=== PATIENT | male | born 1960 | race Caucasian/White ===

== ENCOUNTER 2020-08-09 15:48 | Inpatient (IN) ==
[2020-08-09] MEDS ORDERED: SODIUM CHLORIDE 0.9% 500 ML IV ONE (16:15)
[2020-08-09 16:35] LABS: Basophils # (auto) 0.03 K/uL (0-0.2); Basophils % (auto) 0.5 %; Eosinophils # (auto) 0.11 K/uL (0-0.5); Eosinophils % (auto) 1.8 %; Hematocrit (blood only) 45.3 % (42-52); Hemoglobin 15.3 g/dL (14.0-18.0); Immature Granulocytes # (auto) 0.02 K/uL (0.00-0.02); Immature Granulocytes % (auto) 0.3 %; Lymphocytes # (auto) 1.05 K/uL (1.2-3.4); Lymphocytes % (auto) 17.2 %; Mean Corpuscular Hgb Conc 33.8 g/dL (32-36); Mean Corpuscular Volume 85.8 fL (80-100); Mean Platelet Volume 9.5 fL (7.4-10.4); Monocytes # (auto) 0.58 K/uL (0.11-0.59); Monocytes % (auto) 9.5 %; Neutrophils # (auto) 4.32 K/uL (1.4-6.5); Neutrophils % (auto) 70.7 %; Platelet Count 159 K/uL (130-400); RDW Coefficient of Variation 12.8 % (11.5-14.5); RDW Standard Deviation 40.3 fL (36.4-46.3); Red Blood Count 5.28 M/uL (4.7-6.1); White Blood Count 6.11 K/uL (4.8-10.8)
--- NOTE | 2020-08-09 16:41 | XRay Report ---
SINGLE VIEW CHEST CLINICAL HISTORY: Atypical chest pain. FINDINGS: An AP, portable, upright chest radiograph is compared to study dated 02/24/2008. The heart a ppears mildly enlarged. The mediastinal contour is within normal limits. There is mild bibasilar atel ectasis. No airspace consolidation or large pleural effusion is identified. No pneumothorax is seen. 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 IMPRESSION: No acute cardiopulmonary abnormality. ACT 112: Negative or not required by law. Electronically signed by: Arnaldo Pichardo M.D. 08/09/2020 4:40 PM
[2020-08-09 16:52] LABS: Albumin Level 4.2 gm/dl (3.4-5.0); BUN Creatinine Ratio 15.2 (10-20); Bilirubin Direct 0.2 mg/dl (0-0.2); Creatinine Clr Calc Pharmacy 73.8 ml/min; Est GFR (African American) 81.7 ml/min; Est GFR (Non-African American) 70.5 ml/min; Potassium 3.9 mmol/L (3.5-5.1)
--- NOTE | 2020-08-09 16:55 | History & Physical Report ---
Date of Service August 09, 2020 Assessment & Plan (1) Abnormal stress echocardiogram: (2) Non-sustained ventricular tachycardia: This is a 60yo M with a PMH of prediabetes who presents from cardiology clinic following abnormal stress echocardiogram. Exertional chest/epigastric pain x 4 months. Currently chest pain free at rest Abnormal stress echo today with wall motion abnormalities of the inferior and septal myocardium Developed non-sustained vtach during exercise stress echo - EKG in ER this evening showing NSR Dr. Bay sent to ER for admission with planned cardiac catheterization in the morning No indication for IV heparin at this time, per discussion with Dr. Bay Initial troponin 0.129 in setting of resolved vtach and exertional ischemia - continue to trend troponin Continue aspirin, statin Adding Lopressor 12.5mg Keep NPO after midnight Repeat ECG in AM Cardiology consult DVT Ppx: SQ heparin x 1 this evening Code status: FULL PCP: Cory Dispo: Admitted to PCU. Patient seen in collaboration with Dr. Barrientos. Please see addendum. History of Present Illness Chief Complaint: abnormal stress echo Primary Care Provider: Rachell Ray MD This is a 60yo M with a PMH of prediabetes who presents from cardiology clinic following abnormal stress echocardiogram. Patient with history of epigastric and chest discomfort over the past 4 months and describes as exertional burning pain in epigastrium radiating up to chest with associated SOB and indigestion. Resolves at rest. Denies nausea, vomiting, abdominal pain. No fever, chills, lightheadedness, headache, congestion, sore throat, wheezing, dysuria or diarrhea. Endorses constipation that resolved with OTC medications at home. Chews tobacco daily. Has previously undergone GI work-up for reflux which was negative prior to referral to cardiology. Underwent exercise stress echocardiogram today and was only able to complete 4 minutes of protocol prior to developing nonsustained ventricular tachycardia. Echocardiogram revealed wall motion abnormalities of the inferior and septal myocardium. Dr. Bay sent to ER for admission with planned cardiac catheterization in the morning. Is not experiencing chest or epigastric pain while at rest in ER. Allergies Allergy/AdvReac Type Severity Reaction Status Date / Time No Known Allergies Allergy Mild Verified 08/09/20 17:10 Home Medications Medication Instructions Recorded Confirmed Type aspirin 81 mg PO DAILY 08/09/20 08/09/20 History calcium carbonate [Tums] 200 mg PO DIRECTED PRN 08/09/20 08/09/20 History famotidine 20 mg PO DIRECTED PRN 08/09/20 08/09/20 History pantoprazole 40 mg PO DAILYBB 08/09/20 08/09/20 History rosuvastatin [Crestor] 10 mg PO DAILY 08/09/20 08/09/20 History Past Med/Surg History Medical History Chest pain Tobacco use Surgical History History of colonoscopy 05/25/20 adenomatous polyp, repeat 5 yrs History of esophagogastroduodenoscopy (EGD) 05/25/20 normal bx Family History (Updated 08/09/20 @ 16:52 by Ivy Martinez PA-C) Other Heart disease Social History (Updated 08/09/20 @ 17:12 by Ivy Martinez PA-C) Smoking Status: Current every day smoker Tobacco Type: Smokeless Tobacco (Dip or Chew) Hx Alcohol Use: Yes Alcohol type: beer Alcohol Intake Frequency: 2-3 x/Week Alcohol Intake Frequency Comment: 4-5 beers 2-3x/week Hx Substance Use: No Feels Safe at Home: Yes Review of Systems Review of Systems: At least ten systems reviewed and negative except as noted in the HPI. Physical Exam Physical Exam: Please see Dr. Barrientos's addendum for physical exam. Results & Data Results & Data ([facility]) Vital Signs (Past 12 Hours) Vital Signs Temp Pulse Resp BP Pulse Ox 08/09/20 16:24 96 08/09/20 15:52 36.3 C L 85 20 184/112 H 97 Laboratory Results Short CBC 08/09/20 Range/Units 16:05 WBC 6.11 (4.8-10.8) K/uL Hgb 15.3 (14.0-18.0) g/dL Hct 45.3 (42-52) % Plt Count 159 (130-400) K/uL BMP 08/09/20 16:05 Sodium 138 Potassium 3.9 Chloride 105 Carbon Dioxide 26 BUN 17 Creatinine 1.12 Glucose 86 Calcium 10.0 Liver Function 08/09/20 Range/Units 16:05 Direct Bilirubin 0.2 (0-0.2) mg/dl AST 40 H (15-37) U/L ALT 59 (12-78) U/L Albumin 4.2 (3.4-5.0) gm/dl Diagnostic Findings Chest X-Ray 08/09/20 16:15 SINGLE VIEW CHEST CLINICAL HISTORY: Atypical chest pain. FINDINGS: An AP, portable, upright chest radiograph is compared to study dated 02/24/2008. The heart appears mildly enlarged. The mediastinal contour is within normal limits. There is mild bibasilar atelectasis. No airspace consolidation or large pleural effusion is identified. No pneumothorax is seen. 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 IMPRESSION: No acute cardiopulmonary abnormality. ACT 112: Negative or not required by law. Electronically signed by: Arnaldo Pichardo M.D. 08/09/2020 4:40 PM Supervising Physician Co-Signing Physician Notes 60-year-old man who presents from cardiac stress test today due to significant findings. History and physical exam performed by me as detailed by Ivy Martinez PA-C History is significant for history of epigastric pain/discomfort especially on exertion, associated with shortness of breath and this resolves with rest for past 4months with negative GI workup Also significant family history of father having a cardiac event at 55 Denies cigarette smoking, chews tobacco daily. Had developed symptoms during stress test today with NSVT and wall motion abnormalities General: Well nourished, well hydrated, no acute distress and not ill appearing Eyes: PERRL, conjunctivae normal, not pale, anicteric sclerae, EOM intact bilaterally ENMT: External ear and nose normal, oropharynx normal Neck: Normal visual inspection, no tracheal deviation, no swelling noted Respiratory: Normal respiratory effort, no respiratory distress, lungs clear to auscultation, no crackles and no wheezes Cardiovascular: Pulse is RRR. Heart Sounds: normal S1 and normal S2; no murmurs. no pedal edema Chest (Breasts): Chest: normal inspection of chest Gastrointestinal (Abdomen): Abdomen is not distended, soft, non-tender to palpation, no guarding, no palpable hepatosplenomegaly, normal bowel sounds Musculoskeletal: No cyanosis or clubbing, all extremities motor strength 5/5 Genitourinary: No CVA tenderness Skin: No rash noted on gross inspection, No ulcers noted Neurologic: Alert and oriented x 3, No focal weakness, sensation grossly intact Psychiatric: Euthymic affect, no depressed affect -Stable angina -Abnormal stress test Trend trop EKG analysis normal sinus rhythm without ST-T changes Keep n.p.o. past midnight for cath tomorrow Blood pressure was elevated on admission. During evaluation was 154/80 Continue beta-padmini Continue aspirin and statin. Cardiology consult Hemoglobin A1c from 04/29/2020 was 5.9. Recheck in AM Check Lipid panel Other plans as detailed by Ivy Martinez PA-C
--- NOTE | 2020-08-09 16:58 | Emergency Department Note ---
Impression & Plan Chest pain, Abnormal stress echocardiogram, Non-sustained ventricular tachycardia, Elevated troponin, Lab test positive for detection of COVID-19 virus ED Provider Note NAME: STAR CORONA AGE: 60 SEX: M ARRIVES VIA: Walk-In INFORMANT: Patient, ED PROVIDER(S): Owen Chanel MD CHIEF COMPLAINT: Chest pain, Abnormal stress test. PLAN: Disposition: Admit MEDICAL DECISION MAKING: The patient is a pleasant 60-year-old gentleman with a past medical history of tobacco use who presents to the emergency department referred from cardiology of [facility] after having outpatient stress echo that was abnormal with wall motion abnormality and NSVT where he developed chest pain in setting of his report of having frequent exertional chest pain and resting chest pain that he had attributed to reflux for the past several months. He reports a family history of early heart disease. Otherwise denies any fevers, chills, cough, congestion, GI or symptoms. At this time patient denies any chest pain and reports it resolved once his exertion was discontinued. Per call-in from cardiology plan will be for admission and heart catheterization in the morning. On arrival patient is no acute distress, afebrile with blood pressure 180s/100s and vital signs otherwise stable. EKG without overt acute ischemia. CXR negative for acute cardiopulmonary pro cess. WBC, H/H, platelets wnl. Chemistry without acidosis. Electrolytes unremarkable. LFTs without significant abnormality. Initial Troponin 0.129. Aspirin administered. Case was discussed with Dino Aleman PAC (who was already aware of the patient referral to ED and plan) with Dr. Floyd Sun hospitalist who will evaluate the patient for admission. Patient's Covid-19 PCR was subsequently positive. Admitting team updated. Triage Nursing notes reviewed and agree them. Prior medical records reviewed Vital Signs: reviewed and remarkable for hypertension. Differential diagnosis: Cardiac ischemia, aortic dissection, pulmonary embolism, pneumothorax, pneumonia, pericarditis, myocarditis, esophageal rupture, GERD, cholecystitis, pancreatitis, musculoskeletal, as well as other pathologies. ER treatment provided: See below. Diagnostics interpreted by me: ECG: Normal sinus rhythm, 65 bpm, no ectopy, no overt ST elevation or depression, QTC 418, QRS 90. Cardiac Monitoring: An order for continuous cardiac monitoring was placed and demonstrated normal sinus rhythm, 65 bpm, no ectopy. Laboratory studies: See below Imaging studies: See below Consultation(s): Case was discussed with Dino Aleman PAC, with Dr. Floyd Sun hospitalist who will evaluate the patient for admission. HPI: The patient is a pleasant 60-year-old gentleman with a past medical history of tobacco use who presents to the emergency department referred from cardiology office after having outpatient stress echo that was abnormal with wall motion abnormality and NSVT where he developed chest pain in setting of his report of having frequent exertional chest pain and resting chest pain that he had attributed to reflux for the past several months. He reports a family history of early heart disease. Otherwise denies any fevers, chills, cough, congestion, GI or symptoms. At this time patient denies any chest pain and reports it resolved once his exertion was discontinued. Per call-in from cardiology plan will be for admission and heart catheterization in the morning. ROS: See above HPI for pertinent positives & negatives. A total of 10 systems reviewed and were otherwise negative. PAST MEDICAL HISTORY:See Below PAST SURGICAL HISTORY:See Below FAMILY HISTORY:See Below SOCIAL HISTORY:See Below HOME MEDICATIONS:See Below ALLERGIES:See Below VITALS:See Below PHYSICAL EXAMINATION: GENERAL: Awake, alert, well-appearing, in no distress HENT: Normocephalic, atraumatic. Oropharynx with dry mucous membranes and otherwise unremarkable. EYES: Normal conjunctiva. Sclera non-icteric. NECK: Supple. No nuchal rigidity. FROM. No JVD. RESPIRATORY: Clear to auscultation. CARDIAC: Regular rate, normal rhythm. Extremities warm and well perfused. Pulses equal. ABDOMEN: Soft, non-distended. No tenderness to palpation. No rebound or guarding. No masses. RECTAL: Deferred. MUSCULOSKELETAL: Chest examination reveals no tenderness. The back is symmetrical on inspection without obvious abnormality. There is no CVA tenderness to palpation. No joint edema. LOWER EXTREMITIES: Calves are equal size bilaterally and non-tender. No edema. No discoloration. NEURO: Normal sensorium. No sensory or motor deficits noted. SKIN: No rash or jaundice noted. ED COURSE: Critical Care: I have personally spent greater than 35 minutes of critical care time in the direct management of this patient. This includes bedside care, interpretation of diagnostic studies, and testing, discussion with consultants, patient, and family members, and other required patient management activities. This 35 minutes is in excess of all separately billable procedures. Owen Chanel MD Past Med/Surg History Medical History Chest pain Tobacco use Surgical History History of colonoscopy 05/25/20 adenomatous polyp, repeat 5 yrs History of esophagogastroduodenoscopy (EGD) 05/25/20 normal bx Family History Other Heart disease Social History Smoking Status: Never smoker Tobacco Type: Smokeless Tobacco (Dip or Chew) Second Hand Exposure: Yes; Do You Dip or Chew Tobacco: Yes; Tobacco Cessation Education Requested by Patient: No Hx Alcohol Use: Yes Alcohol type: beer Alcohol Intake Frequency: 2-3 x/Week Alcohol Intake Frequency Comment: 4-5 beers 2-3x/week Hx Substance Use: No Preferred Language: [place] Communication Ability: Effective Biological Scientist Required: No Beliefs That Will Affect Care: None Current Living Situation: Family Other Information That Helps Us Care for You: No Feels Safe at Home: Yes Safety Concerns: Feels Safe At This Time Assistive Devices: Contacts Allergies Allergies Allergy/AdvReac Type Severity Reaction Status Date / Time No Known Allergies Allergy Mild Verified 08/09/20 17:10 Home Meds Home Medications Medication Instructions Recorded Confirmed aspirin 81 mg PO DAILY 08/09/20 08/09/20 calcium carbonate [Tums] 200 mg PO DIRECTED PRN 08/09/20 08/09/20 famotidine 20 mg PO DIRECTED PRN 08/09/20 08/09/20 pantoprazole 40 mg PO DAILYBB 08/09/20 08/09/20 rosuvastatin [Crestor] 10 mg PO DAILY 08/09/20 08/09/20 Results & Data (ED) Vital Signs Vital Signs - 24 hr 08/09/20 15:52 08/09/20 16:07 08/09/20 16:24 Temperature 36.3 C L Temperature Source Temporal Artery Scan Pulse Rate 85 59 L Pulse Rate from SpO2 Sensor 60 Respiratory Rate 20 15 Respiratory Effort / Characteristics Non-Labored Respiratory Pattern Regular Blood Pressure 184/112 H 155/95 H Blood Pressure Mean 136 115 Pulse Oximetry 97 94 96 Oxygen Delivery Method Room Air Room Air Sepsis Recent Fever Within 48 Hours No Sepsis New/Unexplained Change in Mental Status N/A Sepsis Action Taken by Nursing No Action Required 08/09/20 16:30 08/09/20 17:00 Temperature Temperature Source Pulse Rate 59 L 60 Pulse Rate from SpO2 Sensor 60 58 L Respiratory Rate 22 25 H Respiratory Effort / Characteristics Respiratory Pattern Blood Pressure 157/88 H 147/87 H Blood Pressure Mean 111 107 Pulse Oximetry 95 95 Oxygen Delivery Method Sepsis Recent Fever Within 48 Hours Sepsis New/Unexplained Change in Mental Status Sepsis Action Taken by Nursing Laboratory Data Attestation: I reviewed the patient's lab results. Result diagrams: 08/09/20 16:05 08/09/20 16:05 Lab Results 08/09/20 08/09/20 08/09/20 Range/Units 16:05 16:05 16:35 WBC 6.11 (4.8-10.8) K/uL RBC 5.28 (4.7-6.1) M/uL Hgb 15.3 (14.0-18.0) g/dL Hct 45.3 (42-52) % MCV 85.8 (80-100) fL MCH 29.0 (25-34) pg MCHC 33.8 (32-36) g/dL RDW Std Deviation 40.3 (36.4-46.3) fL RDW Coeff of Marizol 12.8 (11.5-14.5) % Plt Count 159 (130-400) K/uL MPV 9.5 (7.4-10.4) fL Immature Gran % (Auto) 0.3 % Neut % (Auto) 70.7 % Lymph % (Auto) 17.2 % [place] % (Auto) 9.5 % Eos % (Auto) 1.8 % Baso % (Auto) 0.5 % Neut # (Auto) 4.32 (1.4-6.5) K/uL Lymph # (Auto) 1.05 L (1.2-3.4) K/uL [place] # (Auto) 0.58 (0.11-0.59) K/uL Eos # (Auto) 0.11 (0-0.5) K/uL Baso # (Auto) 0.03 (0-0.2) K/uL Immature Gran # (Auto) 0.02 (0.00-0.02) K/uL Sodium 138 (136-145) mmol/L Potassium 3.9 (3.5-5.1) mmol/L Chloride 105 (98-107) mmol/L Carbon Dioxide 26 (21-32) mmol/L Anion Gap 7.0 (3-11) BUN 17 (7-18) mg/dl Creatinine 1.12 (0.6-1.4) mg/dl Est Cr Clr Drug Dosing 73.8 ml/min Est GFR ( Amer) 81.7 ml/min Est GFR (Non-Af Amer) 70.5 ml/min BUN/Creatinine Ratio 15.2 (10-20) Glucose 86 (70-99) mg/dl Calcium 10.0 (8.5-10.1) mg/dl Phosphorus 3.8 (2.5-4.9) mg/dl Magnesium 2.0 (1.8-2.4) mg/dl Total Bilirubin 0.8 (0.2-1) mg/dl Direct Bilirubin 0.2 (0-0.2) mg/dl AST 40 H (15-37) U/L ALT 59 (12-78) U/L Alkaline Phosphatase 122 H (45-117) U/L Total Creatine Kinase 176 (39-308) U/L Troponin I 0.129 H* (0-0.045) ng/ml Total Protein 7.7 (6.4-8.2) gm/dl Albumin 4.2 (3.4-5.0) gm/dl Globulin 3.5 (2.5-4.0) gm/dl Albumin/Globulin Ratio 1.2 (0.9-2) Lipase 160 (73-393) U/L COVID-19 Eval Order Covid19 at [facility] SARS-CoV-2 (PCR) (Negative) 08/09/20 Range/Units 16:35 WBC (4.8-10.8) K/uL RBC (4.7-6.1) M/uL Hgb (14.0-18.0) g/dL Hct (42-52) % MCV (80-100) fL MCH (25-34) pg MCHC (32-36) g/dL RDW Std Deviation (36.4-46.3) fL RDW Coeff of Marizol (11.5-14.5) % Plt Count (130-400) K/uL MPV (7.4-10.4) fL Immature Gran % (Auto) % Neut % (Auto) % Lymph % (Auto) % [place] % (Auto) % Eos % (Auto) % Baso % (Auto) % Neut # (Auto) (1.4-6.5) K/uL Lymph # (Auto) (1.2-3.4) K/uL [place] # (Auto) (0.11-0.59) K/uL Eos # (Auto) (0-0.5) K/uL Baso # (Auto) (0-0.2) K/uL Immature Gran # (Auto) (0.00-0.02) K/uL Sodium (136-145) mmol/L Potassium (3.5-5.1) mmol/L Chloride (98-107) mmol/L Carbon Dioxide (21-32) mmol/L Anion Gap (3-11) BUN (7-18) mg/dl Creatinine (0.6-1.4) mg/dl Est Cr Clr Drug Dosing ml/min Est GFR ( Amer) ml/min Est GFR (Non-Af Amer) ml/min BUN/Creatinine Ratio (10-20) Glucose (70-99) mg/dl Calcium (8.5-10.1) mg/dl Phosphorus (2.5-4.9) mg/dl Magnesium (1.8-2.4) mg/dl Total Bilirubin (0.2-1) mg/dl Direct Bilirubin (0-0.2) mg/dl AST (15-37) U/L ALT (12-78) U/L Alkaline Phosphatase (45-117) U/L Total Creatine Kinase (39-308) U/L Troponin I (0-0.045) ng/ml Total Protein (6.4-8.2) gm/dl Albumin (3.4-5.0) gm/dl Globulin (2.5-4.0) gm/dl Albumin/Globulin Ratio (0.9-2) Lipase (73-393) U/L COVID-19 Eval Order SARS-CoV-2 (PCR) POSITIVE A* (Negative) Administered Medications Metoprolol Tartrate (Metoprolol Tartrate 25 Mg Tab) 12.5 mg PO BID KANDI Stop: 09/08/20 20:59 Last Admin: 08/09/20 20:21 Dose: Not Given Documented by: [id number] Discontinued Medications Aspirin (Aspirin Chew 324 Mg) 324 mg PO NOW STA Stop: 08/09/20 17:28 Last Admin: 08/09/20 17:36 Dose: 324 mg Documented by: [id number] Heparin Sodium (Porcine) (Heparin Sod 5,000 Unit/0.5 Ml Vial) 5,000 units SQ ONE ONE Stop: 08/09/20 21:01 Last Admin: 08/09/20 20:20 Dose: 5,000 units Documented by: [id number] Sodium Chloride (Nss) 500 mls @ 999 mls/hr IV .Q31M ONE Stop: 08/09/20 16:45 Last Infusion: 08/09/20 17:59 Dose: 0 mls/hr Documented by: [id number] Admin: 08/09/20 16:36 Dose: 999 mls/hr Documented by: [id number] Isosorbide Mononitrate (Isosorbide [place] Extended Rel 30 Mg Tabcr) 30 mg PO NOW ONE Stop: 08/09/20 21:13 Last Admin: 08/09/20 22:49 Dose: Not Given Documented by: [id number] Imaging Data Radiologist's Impression: Chest X-Ray 08/09/20 16:15 SINGLE VIEW CHEST CLINICAL HISTORY: Atypical chest pain. FINDINGS: An AP, portable, upright chest radiograph is compared to study dated 02/24/2008. The heart appears mildly enlarged. The mediastinal contour is within normal limits. There is mild bibasilar atelectasis. No airspace consolidation or large pleural effusion is identified. No pneumothorax is seen. 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 IMPRESSION: No acute cardiopulmonary abnormality. ACT 112: Negative or not required by law. Electronically signed by: Arnaldo Pichardo M.D. 08/09/2020 4:40 PM Discharge Plan Visit Data Chief Complaint: Cardiac Assessment Stated Complaint: DOC REF HEART CATH ED Provider: Owen Chanel Discharge Problem: Chest pain, Abnormal stress echocardiogram, Non-sustained ventricular tachycardia, Elevated troponin, Lab test positive for detection of COVID-19 virus Patient Disposition: Admitted As Inpatient Discharge Instructions Interventions: ED Discharge Assessment Last Done: 08/09/20 19:25 Discharge Problem: Chest pain Qualifiers: Chest pain type: unspecified Qualified Code(s): R07.9 - Chest pain, unspecified
[2020-08-09 16:59] LABS: Albumin Globulin Ratio 1.2 (0.9-2); Bilirubin,Total 0.8 mg/dl (0.2-1); Globulin 3.5 gm/dl (2.5-4.0); Phosphorus 3.8 mg/dl (2.5-4.9); Total Protein 7.7 gm/dl (6.4-8.2); Troponin I 0.129 ng/ml (0-0.045)
[2020-08-09] MEDS ORDERED: ASPIRIN CHEW 324 MG PO STA (17:27)
[2020-08-09] MEDS ORDERED: ACETAMINOPHEN 325 MG TAB PO PRN (19:34)
[2020-08-09] MEDS ORDERED: POLYETHYLENE (MIRALAX) 17 GM PACK PO PRN (19:34)
[2020-08-09] MEDS ORDERED: ONDANSETRON INJ 2 MG/ML 2 ML VIAL IV PRN (19:34)
[2020-08-09] MEDS ORDERED: CALCIUM CARBONATE 500 MG CHEWABLE TAB PO PRN (19:34)
[2020-08-09] MEDS ORDERED: FAMOTIDINE 20 MG TAB PO PRN (19:34)
[2020-08-09] MEDS: METOPROLOL TARTRATE 25 MG TAB PO SCH (20:21)
[2020-08-09] MEDS ORDERED: HEPARIN SOD 5,000 UNIT/0.5 ML VIAL SQ ONE (21:00)
[2020-08-09] MEDS ORDERED: ISOSORBIDE MONO EXTENDED REL 30 MG TABCR PO ONE (21:12)
[2020-08-10 04:53] LABS: Hematocrit (blood only) 43.7 % (42-52); Hemoglobin 14.6 g/dL (14.0-18.0); Mean Corpuscular Hemoglobin 28.9 pg (25-34); Mean Corpuscular Hgb Conc 33.4 g/dL (32-36); Mean Corpuscular Volume 86.5 fL (80-100); Mean Platelet Volume 9.3 fL (7.4-10.4); Platelet Count 151 K/uL (130-400); RDW Coefficient of Variation 12.9 % (11.5-14.5); Red Blood Count 5.05 M/uL (4.7-6.1); White Blood Count 5.05 K/uL (4.8-10.8)
[2020-08-10 05:23] LABS: BUN Creatinine Ratio 15.8 (10-20); Calcium 8.8 mg/dl (8.5-10.1); Est GFR (African American) 96.1 ml/min; Est GFR (Non-African American) 82.9 ml/min
[2020-08-10 05:41] LABS: Troponin I 0.128 ng/ml (0-0.045)
[2020-08-10] MEDS: PANTOprazole 40 MG TAB PO SCH (06:14)
[2020-08-10 07:44] LABS: Estimated Average Glucose 117 mg/dl; Hemoglobin A1C 5.7 % (4.5-5.6)
[2020-08-10] MEDS: METOPROLOL TARTRATE 25 MG TAB PO SCH ×2 (08:32→20:17)
[2020-08-10] MEDS ORDERED: HEPARIN (PORCINE) 1000 UNIT/ML 10 ML (CATH LAB USE ONLY) ONE (11:04)
[2020-08-10] MEDS ORDERED: niCARdipine HCL INJ 2.5 MG/ML 10 ML AMP ONE (11:04)
[2020-08-10] MEDS ORDERED: MIDAZOLAM HCL 1 MG/ML 2ML VIAL ONE ×2 (11:04→12:31)
[2020-08-10] MEDS ORDERED: fentaNYL citrate 100 MCG/2 ML VIAL ONE (11:04)
[2020-08-10] MEDS ORDERED: NITROGLYCERIN/D5W 100MCG/ML 20ML SYR ONE (11:05)
--- NOTE | 2020-08-10 11:40 | Cardiology Consultation ---
Date of Consultation August 10, 2020 Assessment & Plan (1) Abnormal stress echocardiogram: Risk, benefits, alternatives to cardiac catheterization discussed. Patient agreeable. Due to positive COVID-19 status, procedure was performed with appropriate PPE. He is a drug-eluting stent candidate. (2) Non-sustained ventricular tachycardia: Tolerating beta-padmnii. No recurrent dysrhythmias overnight. (3) Elevated troponin: Likely secondary to demand ischemia during stress testing. Normal resting wall motion per echocardiogram. No ischemic ECG changes this a.m. Cardiac catheterization today. (4) Lab test positive for detection of COVID-19 virus: Isolation/PPE protocol. (5) Tobacco use: History of Present Illness Reason for Consultation: abnormal stress, chest pain Requesting Physician: Dr. Antonio Attending Physician: Didier Antonio MD History of Present Illness Patient seen and examined at bedside. Referred from the cardiology clinic 08/09/2020 due to abnormal exercise stress echo. Patient experiencing exertional chest discomfort for several months. Evidence of inferior ischemia without resting wall motion abnormality on stress testing. Ventricular tachycardia recorded with exercise. Covid test positive on admission. Patient reports COVID-19 infection in February. Currently no respiratory symptoms, fevers, or s ick contacts. Asymptomatic at rest. Telemetry reveals sinus bradycardia. Offers no complaints at this time Allergies Allergy/AdvReac Type Severity Reaction Status Date / Time No Known Allergies Allergy Mild Verified 08/09/20 17:10 Home Medications Medication Instructions Recorded Confirmed Type aspirin 81 mg PO DAILY 08/09/20 08/09/20 History calcium carbonate [Tums] 200 mg PO DIRECTED PRN 08/09/20 08/09/20 History famotidine 20 mg PO DIRECTED PRN 08/09/20 08/09/20 History pantoprazole 40 mg PO DAILYBB 08/09/20 08/09/20 History rosuvastatin [Crestor] 10 mg PO DAILY 08/09/20 08/09/20 History Patient History Medical History Chest pain Tobacco use Surgical History History of colonoscopy 05/25/20 adenomatous polyp, repeat 5 yrs History of esophagogastroduodenoscopy (EGD) 05/25/20 normal bx Family History Other Heart disease Social History Smoking Status: Never smoker Tobacco Type: Smokeless Tobacco (Dip or Chew) Second Hand Exposure: Yes; Do You Dip or Chew Tobacco: Yes; Tobacco Cessation Education Requested by Patient: No Hx Alcohol Use: Yes Alcohol type: beer Alcohol Intake Frequency: 2-3 x/Week Alcohol Intake Frequency Comment: 4-5 beers 2-3x/week Hx Substance Use: No Preferred Language: Yakut Communication Ability: Effective Operating Room Manager Required: No Beliefs That Will Affect Care: None Current Living Situation: Family Other Information That Helps Us Care for You: No Feels Safe at Home: Yes Safety Concerns: Feels Safe At This Time Assistive Devices: None Review of Systems Review of Systems: All systems reviewed & are unremarkable except as noted in Subjective Physical Exam Constitutional: well developed and well nourished; no acute distress Respiratory: normal respiratory effort; no respiratory distress and no labored breathing Auscultation: lungs clear to auscultation bilaterally; breath sounds present, no diminished lung sounds, no crackles, no rales, no rhonchi and no wheezes Cardiovascular: Heart Sounds: normal S1 and normal S2; no murmur Vessels: femoral pulses present and radial pulses present; no JVD Extremities: no edema Gastrointestinal (Abdomen): Inspection/Auscultation: abdomen normal to inspection and normal bowel sounds; abdomen not distended Percussion/Palpation: abdomen soft; abdomen nontender, no guarding and abdomen not rigid Neurologic: CN's II-XI intact bilaterally and moves all extremities; no focal motor deficits Motor/Sensory: no tremor Psychiatric: A+Ox3, euthymic affect Results & Data ([facility]) Vital Signs (Past 12 Hours) Vital Signs Temp Pulse Pulse Resp BP Pulse Ox 08/10/20 10:57 36.7 C 45 L 18 156/83 H 95 08/10/20 09:07 48 L 08/10/20 07:25 36.3 C L 56 L 20 126/69 96 08/10/20 03:49 36.2 C L 55 L 18 141/69 H 97 08/10/20 00:00 58 L
--- NOTE | 2020-08-10 11:49 | Pre Anesthesia Assessment ---
Date of Service August 10, 2020 Pre Sedation Assessment Vital Signs Temp Pulse Pulse Resp BP BP Pulse Ox 08/11/20 11:45 36.8 C 50 L 18 130/76 95 08/11/20 07:53 49 L 08/11/20 07:00 36.6 C 51 L 18 134/71 95 08/11/20 03:00 36.8 C 57 L 19 126/70 96 08/11/20 00:35 52 L 08/10/20 22:52 36.9 C 56 L 20 132/65 96 08/10/20 19:13 36.5 C 60 20 137/83 95 08/10/20 18:13 54 L 18 145/75 H 95 08/10/20 17:13 71 18 147/87 H 95 08/10/20 16:13 36.9 C 64 16 143/82 H 94 08/10/20 15:13 54 L 18 143/77 H 96 08/10/20 14:43 55 L 18 166/84 H 96 Cardiovascular RRR, no murmur, no edema Respiratory normal respiratory effort, lungs clear to auscultation Pre-Sedation Airway Assessment Smoking Status: Never smoker ASA: ASA3 NPO Status Date of Last Intake of Fluids: 08/09/20 Date of Last Intake of Solid Food: 08/09/20 Procedure Planning Contraindications for Sedation: none Current Medications Reviewed: Yes Notes The planned sedation has been discussed with the patient. Informed Consent was obtained. I have identified the patient, determined the appropriateness of sedation and have assessed the patient immediately prior to the procedure. All medicine(s) and interventions are by my order.
--- NOTE | 2020-08-10 12:44 | Post Anesthesia Assessment ---
Date of Service August 10, 2020 Post Sedation Assessment Vital Signs Temp Pulse Pulse Resp BP BP Pulse Ox 08/11/20 11:45 36.8 C 50 L 18 130/76 95 08/11/20 07:53 49 L 08/11/20 07:00 36.6 C 51 L 18 134/71 95 08/11/20 03:00 36.8 C 57 L 19 126/70 96 08/11/20 00:35 52 L 08/10/20 22:52 36.9 C 56 L 20 132/65 96 08/10/20 19:13 36.5 C 60 20 137/83 95 08/10/20 18:13 54 L 18 145/75 H 95 08/10/20 17:13 71 18 147/87 H 95 08/10/20 16:13 36.9 C 64 16 143/82 H 94 08/10/20 15:13 54 L 18 143/77 H 96 08/10/20 14:43 55 L 18 166/84 H 96 Recovery Score Activity: Moves 4 extremities Respiration: Deep Breath/Cough Circulation: +/-20% PreAnes Value Consciousness: Arouseable (by name) Oxygen Saturation: > 92% On Room Air Discharge Sedation Level of Care: Phase I Post Sedation Plan On clinical assessment, the patient appears to have tolerated the sedation without complications. Patient is recovering as anticipated. Patient will continue to be monitored by nursing and may be discharged when sedation discharge criteria are met per below protocol. Upon Completions of procedure up to 15 minutes continue every 5 minute vital signs and the P.A.R. score; then discharge to a Phase I or Fast Track to Phase II per the following guidelines: * Discharge Patient to appropriate Phase II area if PAR is 8 or greater or retur n to pre- procedure baseline. The post - procedure orders will be as directed. * If PAR score is less than 8 or not return to pre-procedure baseline then patient will follow Phase I monitoring till PAR is reached for Phase II. The Phase I may be done in procedure room or may call to secure a Phase I area. * If naloxone or flumazenil are used for reversal, hold in Phase I for continued monitoring from when last reversal dose was given for a minimum of 60 minutes or longer pending the nurse and/or physician discretion of patient condition before discharge to Phase II. Please call the Sedation Physician to re-evaluate and complete post-note for discharge to Phase II area. Do NOT discharge from procedure sedation or Phase 1 until post- sedation evaluation note is complete by procedure /sedation MD Sedation Discharge Instructions to be given to the patient at discharge to home.
--- NOTE | 2020-08-10 12:46 | Electrocardiogram Report ---
Test Reason : Blood Pressure : / mmHG Vent. Rate : 065 BPM Atrial Rate : 065 BPM P-R Int : 204 ms QRS Dur : 098 ms QT Int : 402 ms P-R-T Axes : 036 -14 048 degrees QTc Int : 418 ms Normal sinus rhythm Normal ECG When compared with ECG of 26-FEB-2008 06:18, Questionable change in QRS axis Confirmed by Panda Altman ([id number]) on 08/10/2020 12:46:38 PM Referred By: Berto Bay Confirmed By:Travis Altman
--- NOTE | 2020-08-10 12:52 | Electrocardiogram Report ---
Test Reason : Blood Pressure : / mmHG Vent. Rate : 046 BPM Atrial Rate : 046 BPM P-R Int : 200 ms QRS Dur : 102 ms QT Int : 468 ms P-R-T Axes : 020 005 073 degrees QTc Int : 409 ms Sinus bradycardia Otherwise normal ECG When compared with ECG of 09-AUG-2020 15:57, (unconfirmed) No significant change was found Confirmed by Panda Altman ([id number]) on 08/10/2020 12:51:53 PM Referred By: Berto Bay Confirmed By:Travis Altman
--- NOTE | 2020-08-10 12:57 | Cardiac Catheterization ---
Cardiac Cath Procedure Full Procedure Date August 10, 2020 Pre-Procedure Diagnosis Pre-Procedure Diagnosis: Angina and Positive Stress Test AUC Score AUC Score: 8 Post-Procedure Diagnosis Post-Procedure Diagnosis: Severe CAD and Normal Intracardiac Pressures Procedure(s) Performed Procedure(s) Performed: Coronary Angiography and Left Heart Cath Piper Helper David Montilla DO Synthetic Filament Extruder(s) Kirkr DENTAL LABORATORY ASSISTANT Estimated Blood Loss Estimated Blood Loss: 5cc Medication(s) Medication(s): Fentanyl, Heparin, Lidocaine 1%, Nicardipine, Nitroglycerin and Versed Summary of Findings 90% proximal LAD stenosis Hemodynamics Rest Ao:: 125/62/94 Final Ao: 138/68/96 LV: 130/0/6 Recommendations Recommendations: PCI without planned CABG Radiation Exposure (mGy) 575 Contrast (mls) 30 Fluids (cc crystalloids) Fluids (cc crystalloids): 70 Nss Drains Drains: N/A Anesthesia Moderate sedation. Start 1210. End 1228. 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 Any exceptions are noted below. 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 Exercise stress echo demonstrating ischemia. Poor exercise tolerance and exercise induced ventricular tachycardia noted. Urgently admitted. Mildly elevated troponins. No resting regional wall motion abnormalities per echocardiogram. CAD Presenation: Unstable angina Anginal Classification: CCS III Heart Failure: No Stress Echocardiogram: Yes - Positive and Risk/Extent of Ischemia (High) Coronary Anatomy Dominant: Right Left Main (% Stenosis): Normal LAD (% Stenosis): Proximal (90%), Mid (30%) and Distal (30%) D1 (% Stenosis): Proximal (20%) D2 (% Stenosis): Ostial (30%) Circumflex (% Stenosis): Ostial (30% ostial taper) and Mid (30%) OM1 (% Stenosis): Proximal (20%) RCA (% Stenosis): Proximal (20%), Mid (30%) and Distal (10%) R PDA (% Stenosis): Normal R PL1 (% Stenosis): Normal R PL2 (% Stenosis): Normal Diagnostic Physicians Name: David Montilla DO Status: Urgent Closure Device Percutaneous Entry Location: Radial Closure Device: Radial Band Recommendations: PCI without planned CABG Intraprocedure Events Significant Disection: No Perforation: No
[2020-08-10] MEDS ORDERED: TICAGRELOR 90 MG TAB PO ONE (13:20)
--- NOTE | 2020-08-10 13:25 | Post Anesthesia Assessment ---
Date of Service August 10, 2020 Post Sedation Assessment Vital Signs Temp Pulse Pulse Resp BP BP BP 08/10/20 10:57 98.1 F 45 L 18 156/83 H 08/10/20 09:07 48 L 08/10/20 07:25 97.3 F L 56 L 20 126/69 08/10/20 03:49 97.2 F L 55 L 18 141/69 H 08/10/20 00:00 58 L 08/09/20 22:34 97.5 F L 58 L 18 127/71 08/09/20 20:00 59 L 176/96 H 08/09/20 19:34 97.5 F L 59 L 18 188/99 H 08/09/20 19:00 52 L 12 147/85 H 08/09/20 18:30 53 L 18 150/93 H 08/09/20 17:30 60 19 150/89 H 08/09/20 17:19 67 21 158/95 H 08/09/20 17:00 60 25 H 147/87 H 08/09/20 16:30 59 L 22 157/88 H 08/09/20 16:24 08/09/20 16:07 59 L 15 155/95 H 08/09/20 15:52 97.3 F L 85 20 184/112 H Pulse Ox 08/10/20 10:57 95 08/10/20 09:07 08/10/20 07:25 96 08/10/20 03:49 97 08/10/20 00:00 08/09/20 22:34 95 08/09/20 20:00 08/09/20 19:34 97 08/09/20 19:00 96 08/09/20 18:30 96 08/09/20 17:30 95 08/09/20 17:19 95 08/09/20 17:00 95 08/09/20 16:30 95 08/09/20 16:24 96 08/09/20 16:07 94 08/09/20 15:52 97 Recovery Score Activity: Moves 4 extremities Respiration: Deep Breath/Cough Circulation: +/-20% PreAnes Value Consciousness: Arouseable (by name) Oxygen Saturation: > 92% On Room Air Discharge Sedation Level of Care: Fast Track Phase II Post Sedation Plan On clinical assessment, the patient appears to have tolerated the sedation without complications. Patient is recovering as anticipated. Patient will continue to be monitored by nursing and may be discharged when sedation discharge criteria are met per below protocol. Upon Completions of procedure up to 15 minutes continue every 5 minute vital signs and the P.A.R. score; then discharge to a Phase I or Fast Track to Phase II per the following guidelines: * Discharge Patient to appropriate Phase II area if PAR is 8 or greater or return to pre- procedure baseline. The post - procedure orders will be as directed. * If PAR score is less than 8 or not return to pre-procedure baseline then patient will follow Phase I monitoring till PAR is reached for Phase II. The Phase I may be done in procedure room or may call to secure a Phase I area. * If naloxone or flumazenil are used for reversal, hold in Phase I for continued monitoring from when last reversal dose was given for a minimum of 60 minutes or longer pending the nurse and/or physician discretion of patient condition before discharge to Phase II. Please call the Sedation Physician to re-evaluate and complete post-note for discharge to Phase II area. Do NOT discharge from procedure sedation or Phase 1 until post- sedation evaluation note is complete by procedure /sedation MD Sedation Discharge Instructions to be given to the patient at discharge to home.
[2020-08-10] MEDS ORDERED: SODIUM CHLORIDE 0.9% 1000ML 1,000 ML IV SCH (13:30)
--- NOTE | 2020-08-10 13:41 | Cardiac Catheterization ---
[facility] Data: Supervisor Knitting Cardiac Status Clinical evaluation leading to the procedure CAD Presenation: Unstable angina Anginal Classification: CCS III Heart Failure: No Cardiogenic Shock within 24 Hours: No Cardiac Arrest within 24 Hours: No Imaging Studies Past 6 Months: Yes Stress Studies Past 6 Months: Yes Stress Echocardiogram: Yes - Positive and Risk/Extent of Ischemia (High) Diagnostic Physicians Name: Panda Aceves MD Status: Elective Closure Device Percutaneous Entry Location: Radial Closure Device: Radial Band Recommendations: PCI without planned CABG PCI Indication: + Stress Test and Unstable Angina Lesion Segment Name: Proximal LAD Culprit Artery: Yes Stenosis Prior to Rx (%): 90 Chronic Total Occlusion: No IVUS: Yes FFR: No Pre-Procedure HAYDEE Flow: 2 Previously Treated Lesion: No Lesion Complexity: Non-High/Non-C Lesion Length (mm): 12 Thrombus Present: No Bifurcation Lesion: Yes Guidewire Across Lesion: Stenosis Post-Procedure (%): 0 Post-Procedure HAYDEE Flow: 3 Devices(s) Deployed: Yes Yes Intraprocedure Events Significant Disection: No Perforation: No Cardiac Cath Procedure Full Procedure Date August 10, 2020 Pre-Procedure Diagnosis Pre-Procedure Diagnosis: Angina and Positive Stress Test AUC Score AUC Score: 8 Post-Procedure Diagnosis Post-Procedure Diagnosis: Severe CAD and Successful PCI Procedure(s) Performed Procedure(s) Performed: Coronary Angiography, Drug Eluting Stent and IVUS Director Graphics Panda Aceves MD 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 Montilla. Briefly, patient found to have severe single vessel disease with a 90% proximal LAD stenosis. Decision to proceed with PCI. -- PCI -- Antithrombotic therapy: Heparin, ticagrelor Procedure: Left main cannulated with EBU 3.5 guide BMW wire wire passed across lesion into distal vessel Attempt made to pass [place] IVUS catheter across stenosis but would not pass calcified 90% lesion. No significant left main disease Proximal LAD lesion predilated with 2.5 compliant balloon Repeat [place] IVUS revealed calcified diffuse moderate disease from mid segment back to severe stenosis Dilated proximal LAD lesion stented with 3.5 x 15 mm [place] drug-eluting Stent post-dilated with 3.75 noncompliant balloon IC vasodilators administered for spasm Post procedure HAYDEE 3 flow, stent well expanded with minimal residual stenosis and no apparent cardiac complications. Arterial Closure: TR band Summary: 1. Successful PCI of proximal LAD with single drug-eluting stent (3.5 x 15 mm [place]; postdilated with 3.75 NC). Residual diffuse mild to moderate calcified mid LAD disease Recommendations: To PCU for continued monitoring Loaded with ticagrelor 180 mg in lab coordinator Continue dual-antiplatelet therapy for at least 1 year Consult cardiac Rehab Hemodynamics Rest Ao:: 158/70/100 Final Ao: 158/70/100 LV: 130/6 Recommendations Recommendations: PCI without planned CABG Specimens Specimens: None Radiation Exposure (mGy) 1832 Contrast (mls) 90 Fluids (cc crystalloids) Fluids (cc crystalloids): 90 Drains Drains: None Anesthesia Moderate sedation. Start 1230. End 1315. Sedation monitor: [place] Procedural Complication(s) None Disposition PCU I attest to the content of the Intraoperative Record and any orders documented therein. Any exceptions are noted below. [facility] Card Cath Procedure Codes Therapeutic Services & Ancillary Proc Procedure 1: Cardiovascular Tx and Anc Procedures: 67088 IV Ultrasound (Coronary or Graft) Moderate Sedation Procedure 1: Sedation/Anesthesia: 17400 Mod Sedation by the same physician; Ea [id number] Minutes Stenting Procedure 1: Cardiovascular Stent Procedures: 39835 Perc transcatheter placement of intracoronary stent(s), with ang PG Care Time/CCT Total # of Minutes Spent Total Time Spent with Patient: Total time spent is greater than 50% in coordination of care (as documented) at patient's floor/unit and/or counseling patient:
[2020-08-10] MEDS: ROSUVASTATIN CALCIUM 10 MG TAB PO SCH (15:36)
[2020-08-10] MEDS: ASPIRIN 81 MG ECTAB PO SCH (15:37)
--- NOTE | 2020-08-10 17:17 | Hospitalist Progress Note ---
Date of Service August 10, 2020 Assessment & Plan (1) Abnormal stress echocardiogram: (2) Non-sustained ventricular tachycardia: per admitting service notes: This is a 60yo M with a PMH of prediabetes who presents from cardiology clinic following abnormal stress echocardiogram. Exertional chest/epigastric pain x 4 months. Currently chest pain free at rest Abnormal stress echo today with wall motion abnormalities of the inferior and septal myocardium Developed non-sustained vtach during exercise stress echo - EKG in ER this evening showing NSR Dr. Bay sent to ER for admission with planned cardiac catheterization in the morning No indication for IV heparin at this time, per discussion with Dr. Bya Initial troponin 0.129 in setting of resolved vtach and exertional ischemia s/p Cardiac Cath 08/10/20 1. Successful PCI of proximal LAD with single drug-eluting stent (3.5 x 15 mm [place]; postdilated with 3.75 NC). 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 Continue dual-antiplatelet therapy for at least 1 year Consult cardiac Rehab Continue aspirin, statin Adding Lopressor 12.5mg COVID 19 infection likely secondary to reinfection patient asymptomatic at this time, no hypoxia CXR no pneumonia continue full COVID isolation protocol monitor closely DVT Ppx: received Heparin Code status: FULL PCP: Cory Dispo: anticipate d/c home when medically stable, cleared by Paint Prep Technician plan of care discussed with patient in detail and at length all questions answered he is understanding, agreeable, comfortable with the plan of care Admission and Anticipated Discharge Date Admission Date: August 09, 2020 Subjective ff up for abnormal stress test, NSVT, COVID 19 etc. seen sitting up in bed, comfortable, pleasant states he feels fine overall- just hungry no chest pain, dyspnea, palpitations, dizziness no cough, fever, chills no other symptoms Review of Systems Review of Systems: All systems reviewed & are unremarkable except as noted in Subjective Physical Exam Physical Exam: General- oriented x 3, not in distress, speaks in sentences with no effort or accessory muscle use Eyes- anicteric Neck- no JVD Lungs- clear breath sounds bilaterally, no rales/wheezes Heart- normal rate, regular rhythm; no murmurs Abdomen- normal bowel sounds, nondistended, soft, nontender Extremities- no pretibial edema, no calf tenderness right wrist: no hematoma Neuro- alert, oriented x 3; no gross focal neurologic deficits Skin- warm & dry Results & Data Results & Data ([facility]) Vital Signs (Past 12 Hours) Vital Signs Temp Pulse Pulse Resp BP BP Pulse Ox 08/10/20 15:13 54 L 18 143/77 H 96 08/10/20 14:43 55 L 18 166/84 H 96 08/10/20 14:13 54 L 18 135/82 95 08/10/20 13:58 51 L 18 123/78 95 08/10/20 13:43 49 L 18 123/77 95 08/10/20 13:40 56 L 08/10/20 13:28 36.7 C 51 L 18 141/78 H 95 08/10/20 10:57 36.7 C 45 L 18 156/83 H 95 08/10/20 09:07 48 L 08/10/20 07:25 36.3 C L 56 L 20 126/69 96
[2020-08-11] MEDS: TICAGRELOR 90 MG TAB PO SCH ×2 (00:06→08:37)
[2020-08-11] MEDS: PANTOprazole 40 MG TAB PO SCH (05:42)
[2020-08-11 07:23] LABS: Hematocrit (blood only) 43.2 % (42-52); Hemoglobin 14.7 g/dL (14.0-18.0); Mean Corpuscular Hemoglobin 29.3 pg (25-34); Mean Corpuscular Volume 86.2 fL (80-100); Mean Platelet Volume 9.2 fL (7.4-10.4); Platelet Count 146 K/uL (130-400); RDW Coefficient of Variation 12.9 % (11.5-14.5); RDW Standard Deviation 41.3 fL (36.4-46.3); Red Blood Count 5.01 M/uL (4.7-6.1)
[2020-08-11] MEDS: ASPIRIN 81 MG ECTAB PO SCH (07:41)
[2020-08-11] MEDS: METOPROLOL TARTRATE 25 MG TAB PO SCH (07:41)
[2020-08-11] MEDS: ROSUVASTATIN CALCIUM 10 MG TAB PO SCH (07:42)
[2020-08-11 07:53] LABS: BUN Creatinine Ratio 15.5 (10-20); Creatinine Clr Calc Pharmacy 98.4 ml/min; Est GFR (Non-African American) 87.2 ml/min; Potassium 4.2 mmol/L (3.5-5.1)
--- NOTE | 2020-08-11 09:55 | Electrocardiogram Report ---
Test Reason : Blood Pressure : / mmHG Vent. Rate : 047 BPM Atrial Rate : 047 BPM P-R Int : 204 ms QRS Dur : 098 ms QT Int : 450 ms P-R-T Axes : 044 024 072 degrees QTc Int : 398 ms Sinus bradycardia with 1st degree AV block Otherwise normal ECG When compared with ECG of 10-AUG-2020 06:41, No significant change was found Confirmed by Panda Altman ([id number]) on 08/11/2020 9:55:21 AM Referred By: Berto Bay Confirmed By:Travis Altman
--- NOTE | 2020-08-11 14:23 | Cardiology Progress Note ---
Date of Service August 11, 2020 Assessment & Plan (1) Status post insertion of drug-eluting stent into left anterior descending (LAD) artery: Discussed importance of continuing dual antiplatelet therapy for minimum of 6 months post percutaneous intervention. Titrate rosuvastatin to 40 mg daily. Reduce beta-padmini dosing. Recommend Toprol-XL 12.5 mg daily. Post cardiac catheterization activity restrictions: ACTIVITY RECOMMENDATIONS: It is common to feel weak and fatigue for a few days. * Do not drive or operate any motorized equipment for the next three days. * Limit stair usage (2 or 3 trips a day only) for the next three days. * Do not lift anything heavier than 10 pounds for the next three days. * Do not engage in vigorous exercise or any sports for the next five days. * You may shower the day after your procedure, but do not immerse the area for three days. Cleanse the site gently with soap and water. SPECIAL CARE INSTRUCTIONS: * You may replace the pressure dressing or band-aid the morning after the procedure. * After your procedure, it is normal to have a small bruise or small lump at the site. Examine your site daily for any change in the bruise or lump, redness, swelling, drainage or numbness. Notify your doctor if any change. BLEEDING: * If there is a small amount of bleeding at the site, lie down and apply firm pressure with a clean cloth for ten minutes. When the bleeding stops, lie quietly keeping the procedure limb straight for six hours. Notify your doctor as soon as possible. * If the bleeding does not stop after ten minutes or if there is a large amount of bleeding or spurting, call 911 immediately. Continue to lie down and hold firm pressure until help arrives. SKIN IRRITATION: * You may experience some redness and/or swelling in the area where radiation was administered. If any skin irritation occurs, please contact your family physician. FOLLOW UP VISIT: Keep any scheduled doctor appointments. (2) Non-sustained ventricular tachycardia: Reduce beta-padmini dose as noted above. No recurrent dysrhythmias overnight. (3) Elevated troponin: Likely secondary to demand ischemia during stress testing. Normal resting wall motion per echocardiogram. No ischemic ECG changes this a.m. (4) Lab test positive for detection of COVID-19 virus: Isolation/PPE protocol. (5) Tobacco use: Admission and Anticipated Discharge Date Admission Date: August 09, 2020 Subjective Patient seen and examined at the bedside. Denies chest pain or unusual shortness of breath. Mild abdominal discomfort this morning. Denies palpitations, lighthe adedness, or dizziness. Telemetry reveals sinus bradycardia with heart rate ranging from 40-60 bpm. Tolerating current medications. Mild right anterior wrist ecchymosis noted. No hematoma. Radial pulses palpable. Patient requesting discharge if possible. Review of Systems Review of Systems: All systems reviewed & are unremarkable except as noted in Subjective Physical Exam Constitutional: well developed and well nourished; no acute distress Respiratory: normal respiratory effort, lungs clear to auscultation normal respiratory effort; no respiratory distress and no labored breathing Auscultation: lungs clear to auscultation bilaterally; breath sounds present, no diminished lung sounds, no crackles, no rales, no rhonchi and no wheezes Cardiovascular: RRR, no murmur, no edema Heart Sounds: normal S1 and normal S2; no murmur Vessels: femoral pulses present and radial pulses present; no JVD Extremities: no edema Gastrointestinal (Abdomen): Inspection/Auscultation: abdomen normal to inspection and normal bowel sounds; abdomen not distended Percussion/Palpation: abdomen soft; abdomen nontender, no guarding and abdomen not rigid Neurologic: CN's II-XI intact bilaterally and moves all extremities; no focal motor deficits Motor/Sensory: no tremor Psychiatric: A+Ox3, euthymic affect Results & Data ([facility]) Vital Signs (Past 12 Hours) Vital Signs Temp Pulse Pulse Resp BP BP Pulse Ox 08/11/20 11:45 36.8 C 50 L 18 130/76 95 08/11/20 07:53 49 L 08/11/20 07:00 36.6 C 51 L 18 134/71 95 08/11/20 03:00 36.8 C 57 L 19 126/70 96
--- NOTE | 2020-08-11 18:37 | Electrocardiogram Report ---
Test Reason : Blood Pressure : / mmHG Vent. Rate : 045 BPM Atrial Rate : 045 BPM P-R Int : 206 ms QRS Dur : 096 ms QT Int : 464 ms P-R-T Axes : 042 018 063 degrees QTc Int : 401 ms Sinus bradycardia Otherwise normal ECG When compared with ECG of 10-AUG-2020 13:49, (unconfirmed) No significant change was found Confirmed by Panda Altman ([id number]) on 08/11/2020 6:36:52 PM Referred By: Berto Bay Confirmed By:Travis Altman
--- NOTE | 2020-08-11 19:30 | Hospitalist Progress Note ---
Date of Service August 11, 2020 Assessment & Plan (1) Abnormal stress echocardiogram: (2) Non-sustained ventricular tachycardia: per admitting service notes: This is a 60yo M with a PMH of prediabetes who presents from cardiology clinic following abnormal stress echocardiogram. Exertional chest/epigastric pain x 4 months. Currently chest pain free at rest Abnormal stress echo today with wall motion abnormalities of the inferior and septal myocardium Developed non-sustained vtach during exercise stress echo - EKG in ER this evening showing NSR Dr. Bay sent to ER for admission with planned cardiac catheterization in the morning No indication for IV heparin at this time, per discussion with Dr. Bay Initial troponin 0.129 in setting of resolved vtach and exertional ischemia s/p Cardiac Cath 08/10/20 1. Successful PCI of proximal LAD with single drug-eluting stent (3.5 x 15 mm Weaver; postdilated with 3.75 NC). Residual diffuse mild to moderate calcified mid LAD disease Recommendations per Cardiology SVC: Continue dual-antiplatelet therapy for at least 1 year- Aspirin and Brillinta metoprolol XL 12.5mg po daily ff up with Hospice Bereavement Coordinator in 2 weeks COVID 19 infection likely secondary to reinfection patient asymptomatic at this time, no hypoxia CXR no pneumonia continue full COVID isolation at home- 7 more days to complete 10 days patient given instructions ff up with PCP next week DVT Ppx: received Heparin Code status: FULL PCP: Cory Dispo: d/c home plan of care discussed with patient in detail and at length all questions answered he is understanding, agreeable, comfortable with the plan of care Admission and Anticipated Discharge Date Admission Date: August 09, 2020 Subjective ff up for CAD, COVID etc seen at bedside comfortable, in good spirits chest pain free denies cough, SOB, chest pain, fever/chills states he feels much better overall no other symptoms Review of Systems Review of Systems: All systems reviewed & are unremarkable except as noted in Subjective Physical Exam Physical Exam: General- oriented x 3, not in distress, speaks in sentences with no effort or accessory muscle use Eyes- anicteric Neck- no JVD Lungs- clear breath sounds bilaterally, no rales/wheezes Heart- normal rate, regular rhythm; no murmurs Abdomen- normal bowel sounds, nondistended, soft, nontender Extremities- no pretibial edema, no calf tenderness Neuro- alert, oriented x 3; no gross focal neurologic deficits Skin- warm & dry Results & Data Results & Data ([facility]) Vital Signs (Past 12 Hours) Vital Signs Temp Pulse Pulse Resp BP BP Pulse Ox 08/11/20 15:48 36.8 C 50 L 18 134/71 130/76 95 08/11/20 14:55 57 L 08/11/20 11:45 36.8 C 50 L 18 130/76 95 08/11/20 07:53 49 L all noted and reviewed including below Laboratory Results Laboratory Results - last 24 hr 08/11/20 08/11/20 06:42 06:42 WBC 5.00 RBC 5.01 Hgb 14.7 Hct 43.2 MCV 86.2 MCH 29.3 MCHC 34.0 RDW Std Deviation 41.3 RDW Coeff of Marizol 12.9 Plt Count 146 MPV 9.2 Sodium 138 Potassium 4.2 Chloride 108 H Carbon Dioxide 23 Anion Gap 7.0 BUN 15 Creatinine 0.94 Est Cr Clr Drug Dosing 98.4 Est GFR ( Amer) 101.0 Est GFR (Non-Af Amer) 87.2 BUN/Creatinine Ratio 15.5 Glucose 84 Calcium 9.0
--- NOTE | 2020-08-11 19:33 | Discharge Summary ---
Date of Service August 11, 2020 Admission HPI Per Admitting Provider This is a 60yo M with a PMH of prediabetes who presents from cardiology clinic following abnormal stress echocardiogram. Patient with history of epigastric and chest discomfort over the past 4 months and describes as exertional burning pain in epigastrium radiating up to chest with associated SOB and indigestion. Resolves at rest. Denies nausea, vomiting, abdominal pain. No fever, chills, lightheadedness, headache, congestion, sore throat, wheezing, dysuria or diarrhea. Endorses constipation that resolved with OTC medications at home. Chews tobacco daily. Has previously undergone GI work-up for reflux which was negative prior to referral to cardiology. Underwent exercise stress echocardiogram today and was only able to complete 4 minutes of protocol prior to developing nonsustained ventricular tachycardia. Echocardiogram revealed wall motion abnormalities of the inferior and septal myocardium. Dr. Bay sent to ER for admission with planned cardiac catheterization in the morning. Is not experiencing chest or epigastric pain while at rest in ER. Admission Exam Per Admitting Provider General: Well nourished, well hydrated, no acute distress and not ill appearing Eyes: PERRL, conjunctivae normal, not pale, anicteric sclerae, EOM intact bilaterally ENMT: External ear and nose normal, oropharynx normal Neck: Normal visual inspection, no tracheal deviation, no swelling noted Respiratory: Normal respiratory effort, no respiratory distress, lungs clear to auscultation, no crackles and no wheezes Cardiovascular: Pulse is RRR. Heart Sounds: normal S1 and normal S2; no murmurs. no pedal edema Chest (Breasts): Chest: normal inspection of chest Gastrointestinal (Abdomen): Abdomen is not distended, soft, non-tender to palpation, no guarding, no palpable hepatosplenomegaly, normal bowel sounds Musculoskeletal: No cyanosis or clubbing, all extremities motor strength 5/5 Genitourinary: No CVA tenderness Skin: No rash noted on gross inspection, No ulcers noted Neurologic: Alert and oriented x 3, No focal weakness, sensation grossly intact Psychiatric: Euthymic affect, no depressed affect Principal Diagnosis CORONARY ARTERY DISEASE S/P STENT PLACEMENT Discharge Data Allergies Allergy/AdvReac Type Severity Reaction Status Date / Time No Known Allergies Allergy Mild Verified 08/09/20 17:10 Consultations 08/09/20 17:27 ED Decision to Admit Stat 08/09/20 19:34 Consult Cardiology Routine 08/10/20 13:31 Consult Cardiac Rehabilitation Routine Procedures Performed Operation Date: 08/10/20 09:30 Actual Procedures p Drug Eluting Stent SGl Vessel - Rodriguez Aceves MD p Cath, Left with Cors and Vent - David Tyler DO s Cineradiography w/Routine Exam - David Tyler DO Ordered Studies 08/10/20 06:34 CL Cath Imgs for PACS use only Routine 08/10/20 13:37 CL IVUS Coronary Single Vessel Routine Hospital Course (1) Abnormal stress echocardiogram: (2) Non-sustained ventricular tachycardia: per admitting service notes: This is a 60yo M with a PMH of prediabetes who presents from cardiology clinic following abnormal stress echocardiogram. Exertional chest/epigastric pain x 4 months. Currently chest pain free at rest Abnormal stress echo today with wall motion abnormalities of the inferior and septal myocardium Developed non-sustained vtach during exercise stress echo - EKG in ER this evening showing NSR Dr. Bay sent to ER for admission with planned cardiac catheterization in the morning No indication for IV heparin at this time, per discussion with Dr. Bay Initial troponin 0.129 in setting of resolved vtach and exertional ischemia s/p Cardiac Cath 08/10/20 1. Successful PCI of proximal LAD with single drug-eluting stent (3.5 x 15 mm [place]ath; postdilated with 3.75 NC). Residual diffuse mild to moderate calcified mid LAD disease Recommendations per Cardiology SVC: Continue dual-antiplatelet therapy for at least 1 year- Aspirin and Brillinta metoprolol XL 12.5mg po daily ff up with Research Biologist in 2 weeks COVID 19 infection likely secondary to reinfection patient asymptomatic at this time, no hypoxia CXR no pneumonia continue full COVID isolation at home- 7 more days to complete 10 days patient given instructions ff up with PCP next week DVT Ppx: received Heparin Code status: FULL PCP: Cory Dispo: d/c home plan of care discussed with patient in detail and at length all questions answered he is understanding, agreeable, comfortable with the plan of care Total Time Total Time Spent Total Time Spent (In Minutes): 45 MINUTES Discharge Plan Discharge Items Patient Disposition: Home - Self-Care Reason For Visit: ABNORMAL STRESS ECHO, NON-SUSTAINED VTACH Discharge Diagnosis: CORONARY ARTERY DISEASE Activity: As commented below Driving/Machine Use: NO DRIVING UNTIL RE-EVALUATED AND ALLOWED BY PRIMARY CARE PHYSICIAN Non-emergency contact: Primary Care Provider Call non-emergency contact if: you have any medication questions, your symptoms worsen, your pain is not controlled, your pain is worsening, your pain is unusual for you and your pain is concerning for you Follow-up/Referrals: David Tyler DO [Research Biologist] - Rachell Ray MD [Primary Care Provider] - (Date & Time 08/15/2020 1:00 PM Provider Thais Ray MD Department Family Medicine [facility] [place] PLEASE NOTE THAT THIS IS A TELEHEALTH APPOINTMENT. PLEASE FOLLOW THE INSTRUCTIONS PROVIDED IN YOUR EMAIL. IF YOU HAVE ANY QUESTIONS REGARDING THIS APPOINTMENT, PLEASE CALL ) Diet: Heart Healthy Addtl Attending Provider Instructions: PLEASE CONTINUE PLEASE REVIEW YOUR NEW MEDICATION LIST AND FOLLOW INSTRUCTIONS CAREFULLY. CALL PRIMARY CARE PHYSICIAN OR RETURN TO THE ER IMMEDIATELY IF WITH RECURRENCE OF SYMPTOMS. FOLLOW UP WITH YOUR PCP OUTLINED ABOVE. FOLLOW UP WITH [facility] B[facility] DR. TYLER IN 2 WEEKS. ACTIVITY RECOMMENDATIONS: It is common to feel weak and fatigue for a few days. * Do not drive or operate any motorized equipment for the next three days. * Limit stair usage (2 or 3 trips a day only) for the next three days. * Do not lift anything heavier than 10 pounds for the next three days. * Do not engage in vigorous exercise or any sports for the next five days. * You may shower the day after your procedure, but do not immerse the area for three days. Cleanse the site gently with soap and water. SPECIAL CARE INSTRUCTIONS: * You may replace the pressure dressing or band-aid the morning after the procedure. * After your procedure, it is normal to have a small bruise or small lump at the site. Examine your site daily for any change in the bruise or lump, redness, swelling, drainage or numbness. Notify your doctor if any change. BLEEDING: * If there is a small amount of bleeding at the site, lie down and apply firm pressure with a clean cloth for ten minutes. When the bleeding stops, lie quietly keeping the procedure limb straight for six hours. Notify your doctor as soon as possible. * If the bleeding does not stop after ten minutes or if there is a large amount of bleeding or spurting, call 911 immediately. Continue to lie down and hold firm pressure until help arrives. SKIN IRRITATION: * You may experience some redness and/or swelling in the area where radiation was administered. If any skin irritation occurs, please contact your family physician. FOLLOW UP VISIT: Keep any scheduled doctor appointments. Pending Studies at Discharge: No Stand-Alone Forms: [facility], Smoking Cessation Medications and DC Order Prescriptions: New Brilinta 90 mg Tablet 90 mg PO BID Qty: 60 RF: 2 rosuvastatin [Crestor] 20 mg Tablet 40 mg PO DAILY Qty: 60 RF: 2 metoprolol succinate 25 mg Tablet Extended Release 24 Hr 12.5 mg PO QAM Qty: 30 RF: 2 Continued aspirin 81 mg Tablet,Delayed Release (Dr/Ec) 81 mg PO DAILY RF: 0 famotidine 20 mg tablet 20 mg PO DIRECTED PRN (Reason: Heartburn) RF: 0 pantoprazole 40 mg tablet,delayed release (DR/EC) 40 mg PO DAILYBB RF: 0 calcium carbonate [Tums] 200 mg calcium (500 mg) Tablet,Chewable 200 mg PO DIRECTED PRN (Reason: HEARTBURN/INDIGESTION) RF: 0 Discontinued rosuvastatin [Crestor] 10 mg Tablet 10 mg PO DAILY RF: 0 Discharge Orders: Discharge Order (Routine); Ordered 08/11/20 Ordered By: Didier Antonio Admission Data Admit Date/Time: 08/09/20 17:16 Attending Provider: Didier Antonio Admit Provider: Leah Barrientos I. Primary Care Provider: Rachell Ray Other Providers: Leah Barrientos I. ; David Tyler Other Interventions: Discharge Summary Assessment (RN) Last Done: 08/11/20 15:48
[2020-08-12] MEDS ORDERED: ROSUVASTATIN CALCIUM 20 MG TAB PO SCH (09:00)
[2020-08-12] MEDS ORDERED: METOPROLOL SUCC 25MG EXT REL TAB PO SCH (09:00)
== END 2020-08-11 16:16 | disposition home or self-care (01) ==
LOC: ED 15:48 → 2S 17:16 → SUATTDRO 17:16 → 2S 19:25